=== PATIENT | female | born 1975 | race Two or more races ===

== ENCOUNTER 2018-01-14 00:29 | Emergency (ER) | payer BC ==
[~2018-01-14] VITALS: Ht 172.7 cm; Wt 118.0 kg
[2018-01-14] MEDS ORDERED: KETOROLAC 60MG/2ML VIAL IM ONE (02:00)
[2018-01-14] MEDS ORDERED: ACETAMINOPHEN WITH CODEINE 300/30MG TABLET PO ONE (03:30)
[2018-01-14 04:04] VITALS: BP 132/84
== END 2018-01-14 04:05 | disposition home or self-care (01) ==
LOC: ER 00:29
DX: S83.91XA Sprain of unspecified site of right knee, initial encounter (principal); Z98.890 Other specified postprocedural states; W01.0XXA Fall on same level from slipping, tripping and stumbling without subsequent striking against object, initial encounter; Y93.89 Activity, other specified; Y92.213 High school as the place of occurrence of the external cause
CPT/HCPCS: 73562; 81025; 96372; 99284; J1885; Z7610